=== PATIENT | male | born 2000 | race African-American/Black ===

== ENCOUNTER 2023-12-19 16:13 | Emergency (ER) | payer OTHER, SELFPAY ==
--- NOTE | ~2023-12-19 | XR_ITS ---
XR clavicle LT Ordering provider: Isatu Peterson APRN History: . left clavicle pain and swelling . Comparison: None. FINDINGS: BONES: Comminuted fracture of the midshaft of the left clavicle with displacement of the bones is not ed.. JOINT SPACES: Normal. No acromioclavicular separation. SOFT TISSUES: Normal. IMPRESSION: Fracture left clavicle. Reviewed, dictated and finalized at location A. IMPRESSION: Fracture left clavicle.
[2023-12-19 16:33] VITALS: BP 132/85; PULSE 67; RESP 16; TEMP 36.9; O2SAT 99
--- NOTE | 2023-12-19 16:51 | ED.UPPEXIN ---
HPI - Extremity Injury (Upper) General Chief Complaint: Extremity Injury, Upper Stated Complaint: left shoulder injury/swollen Time Seen by Provider: 12/19/23 16:17 Source: patient Mode of arrival: ambulatory Limitations: no limitations History of Present Illness HPI narrative: 23-year-old male presents to [facility] with complaints of left clavicle swelling and pain since last night at 11:00 p.m.. Patient reports that he was playing capture the flag when he fell on concrete landing on his left clavicle. patient reports that he has been taking [id number] ibuprofen which has been controlling his pain. Patient also reports numerous abrasions to his left forearm since fall. Patient rates his pain a current 10. Patient denies numbness, tingling, fever, body aches or chills. MD complaint: injury to: left and shoulder Onset (ago): hour(s) (18) Other Extremity Injury: Left: shoulder Handedness: right Place: outdoors Relieving factors: rest Exacerbating factors: movement of extremity Context: fall Treatments prior to arrival: NSAIDS Related Data Allergies Allergy/AdvReac Type Severity Reaction Status Date / Time No Known Allergies Allergy Verified 12/19/23 17:09 Review of Systems Constitutional: Constitutional: Denies chills, Denies fatigue, Denies fever(s) and Denies weakness ENT: Denies vertigo, Denies dizziness and Denies nasal congestion Cardiovascular: Cardiovascular: Denies chest pain Respiratory: Respiratory: Denies cough, Denies dyspnea and Denies wheezing Gastrointestinal: Gastrointestinal: Denies diarrhea, Denies nausea and Denies vomiting Musculoskeletal: Musculoskeletal: Reports arthralgias and Reports joint swelling Comments: left clavicle pain and swelling Integumentary/Breasts: Comments: abrasions to left forearm Neurologic: Denies syncope and Denies headache(s) PMFSH Comments At time of signature, I agree with nursing past medical, surgical, social and family history. There is no relevant family history pertinent to the presenting complaint. Exam Const: General: healthy appearing and no acute distress Nutritional Appearance: well nourished Orientation/consciousness: patient oriented x3 Limitations: no limitations HENMT: Head: normal to inspection Eyes: Conjunctivae: conjunctivae normal Neck: Neck: normal visual inspection Resp: Effort & Inspection: normal respiratory effort and not labored Auscultation: clear to auscultation bilaterally, no crackles, no rales, no rhonchi and no wheezes Cardio: Rate: regular rate Rhythm: regular rhythm Heart sounds: no murmurs Skin: Wounds: wounds noted Other: Two 5cm abrasions noted to left forarm; there is no purulent drainage, bruising, bleeding or streaking erythema noted Neuro: General: patient oriented x3 Speech: normal speech Gait exam (Neuro): Normal gait present Extrem: Other: moderate amount of swelling noted to left clavicle with mild amount of pain noted upon palpation. Pt has full ROM to left arm. Pulses are within normal limits. There is no bruising, erythema or open wounds to left clavicle Psych: Affect: normal affect Attitude: cooperative Course Course Level of Care: Express Care Visit Consultations Consultation #1: Dr Bartholomew - orthopedics Date: 12/19/23 Time: 17:19 Additional Consultation(s): Spoke with Dr. Reyez concerning patient's abnormal x-ray results; Dr Reyez reports that pt is ok to go home and follow up with him in the office on Wednesday. Dr Bartholomew is agreeable with pt going home with sling and bar wrap as swath as we have no figure 8 splints [facility]. [facility] Bartholomew reports that he will see pt in office on Wednesday; pt agrees to call his office tomorrow for an appt date and time. Vital Signs Vital signs: Vital Signs Temperature 36.9 C 12/19/23 16:33 Pulse Rate 67 12/19/23 16:33 Respiratory Rate 16 12/19/23 16:33 Blood Pressure 132/85 12/19/23 16:
== END 2023-12-19 17:31 | disposition home or self-care (01) ==
PROVIDERS: Emergency Provider Nurse Practitioner Family
DX: S42.032A Displaced fracture of lateral end of left clavicle, initial encounter for closed fracture (principal); W19.XXXA Unspecified fall, initial encounter
CPT/HCPCS: 73000; 99204; A4565; G0463